=== PATIENT | male | born 1935 | race Caucasian/White ===

== ENCOUNTER 2017-07-13 11:31 | Emergency (ER) | payer OTHER ==
[2017-07-13 11:39] VITALS: RESP 16
--- NOTE | 2017-07-13 12:15 | EDPHY ---
H & P Stated Complaint: fever & cough from [facility] Time Seen by Provider: 07/13/17 12:14 HPI/ROS: CHIEF COMPLAINT: Fever, cough HISTORY OF PRESENT ILLNESS: The patient presents to the emergency department with a 3 day history of fever and cough. The patient's strep [place] from [facility]. The patient has no prior history of asthma, emphysema or cardiac disease. His is also sick with similar symptoms. The patient describes a moderate cough with mild dyspnea. The patient denies asymmetric calf pain or swelling. He denies abdominal pain, nausea, vomiting or diarrhea. REVIEW OF SYSTEMS: A comprehensive 10 point review of systems is otherwise negative aside from elements mentioned in the history of present illness. Source: Patient - Personal History Current Tetanus/Diphtheria Vaccine: Unsure Current Tetanus Diphtheria and Acellular Pertussis (TDAP): Unsure - Medical/Surgical History Hx Asthma: No Hx Chronic Respiratory Disease: No Hx Diabetes: No Hx Cardiac Disease: No Hx Renal Disease: No Hx Cirrhosis: No Hx Alcoholism: No Hx HIV/AIDS: No Hx Splenectomy or Spleen Trauma: No - Social History Smoking Status: Never smoked - Physical Exam Exam: General Appearance: Alert, no distress Eyes: Pupils equal and round no pallor or injection ENT, Mouth: Mucous membranes moist Respiratory: Rhonchorous breath sounds bilaterally Cardiovascular: Regular rate and rhythm Gastrointestinal: Abdomen is soft and nontender, no masses, bowel sounds normal Neurological: A&O, normal motor function, normal sensory exam, normal cranial nerves Skin: Warm and dry, no rashes Musculoskeletal: Neck is supple nontender Extremities: symmetrical, full range of motion Constitutional: Initial Vital Signs Temperature (C) 38.2 C 07/13/17 11:37 Heart Rate 107 H 07/13/17 11:37 Respiratory Rate 16 07/13/17 11:37 Blood Pressure 141/79 H 07/13/17 11:37 O2 Sat (%) 94 07/13/17 11:37 O2 Delivery Mode Room Air Allergies/Adverse Reactions: No Known Allergies Allergy (Unverified 07/13/17 11:39) Home Medications: Medication Instructions Recorded Albuterol [Ventolin Hfa Inhaler] 2 puffs IH QID PRN #1 mdi 07/13/17 Oseltamivir Phosphate [Tamiflu] 75 mg PO BID #10 cap 07/13/17 Medical Decision Making - Diagnostics Imaging Results: Imaging Impressions Chest X-Ray 07/13/17 12:15 Impression: No acute cardiopulmonary abnormality. Marked elevation/eventration right hemidiaphragm.. ED Course/Re-evaluation: The patient presents to the ED with symptoms consistent with acute bronchitis. The patient has fever, cough and mild dyspnea. The patient has no evidence of an obvious infiltrate noted on his chest x-ray. The patient did receive an albuterol nebulizer in the ED. The patient's influenza nasal swab is positive. The patient will be started on Tamiflu. The patient is otherwise well-appearing. He would like to be discharged home. He will be given albuterol MDI as well. The patient is advised to return to the ED for markedly worsening symptoms or other concerns. Differential Diagnosis: Differential diagnosis considered includes asthma, bronchitis, pneumonia - Data Points Microbiology Results: MICROBIOLOGY 07/13/17 12:48 Nasal, Sinus - Swab Respiratory Panel (PCR) - Final Influenza Virus Type A H3 Medications Given: Discontinued Medications Albuterol (Proventil Neb) 3 ml IH EDNOW ONE Stop: 07/13/17 13:02 Last Admin: 07/13/17 13:17 Dose: 3 ml Departure - Departure Disposition: Home, Routine, Self-Care Clinical Impression: Acute bronchitis, Influenza Condition: Good Instructions: Acute Bronchitis (ED) Additional Instructions: 1. Please use albuterol inhaler up to every 2 hours as needed for cough. 2. Tylenol and ibuprofen as needed for fever. 3. Please return to the ED for markedly worsening symptoms, difficulty breathing or other concerns. Prescriptions: Albuterol [Ventolin Hfa Inhaler] 2 puffs IH QID PRN #1 mdi PRN Reason: for shortness of breath Oseltamivir Phosphate [Tamiflu] 75 mg PO BID #10 cap
[2017-07-13] MEDS ORDERED: ALBUTEROL 3 ML DEYVIAL IH ONE (13:01)
[2017-07-13 15:13] VITALS: BP 128/72; PULSE 103; TEMP 98.1; O2SAT 91
== END 2017-07-13 15:11 | disposition home or self-care (01) ==
DX: J09.X2 Influenza due to identified novel influenza A virus with other respiratory manifestations (principal)

== ENCOUNTER 2017-07-16 08:46 | Emergency (ER) | payer OTHER ==
[2017-07-16 08:52] VITALS: TEMP 98.2; O2SAT 93
--- NOTE | 2017-07-16 09:05 | EDPHY ---
H & P Stated Complaint: seen saturday for resp illness/cough is worse Time Seen by Provider: 07/16/17 08:58 - Personal History Current Tetanus/Diphtheria Vaccine: Unsure - Medical/Surgical History Hx Asthma: No Hx Chronic Respiratory Disease: No Hx Diabetes: No Hx Cardiac Disease: No Hx Renal Disease: No Hx Cirrhosis: No Hx Alcoholism: No Hx HIV/AIDS: No Hx Splenectomy or Spleen Trauma: No Other PMH: denies - Social History Smoking Status: Never smoked Constitutional: Initial Vital Signs Temperature (C) 36.8 C 07/16/17 08:50 Heart Rate 93 07/16/17 08:50 Respiratory Rate 18 07/16/17 08:50 Blood Pressure 149/85 H 07/16/17 08:50 O2 Sat (%) 93 07/16/17 08:50 O2 Delivery Mode Nasal Cannula O2 (L/minute) 2 Allergies/Adverse Reactions: No Known Allergies Allergy (Verified 07/16/17 08:50) Home Medications: Medication Instructions Recorded Albuterol [Ventolin Hfa Inhaler] 2 puffs IH QID PRN #1 mdi 07/13/17 Oseltamivir Phosphate [Tamiflu] 75 mg PO BID #10 cap 07/13/17 HYDROcodone/HOMATROPINE HYCODA 1 tsp PO Q4-6PRN PRN #120 ml 07/16/17 [Hycodan Syrup (RX)] Medical Decision Making - Diagnostics Imaging Results: Imaging Impressions Chest X-Ray 07/16/17 09:17 Impression: 1. Persistent elevated right hemidiaphragm with right middle lobe atelectasis. 2. Bronchitis/airways disease. 2. No definite focal pneumonia. Imaging: I viewed and interpreted images myself ED Course/Re-evaluation: CHIEF COMPLAINT: Cough HISTORY OF PRESENT ILLNESS: This patient is a 81 year old male who is positive for flu arriving with his daughter complaining of worsening cough over the last four days. He is visiting and arrived recently from [place], and was positive for flu at a recent visit in this emergency department 07/13/17. He is currently being treated with Tamiflu. He is concerned regarding a worsening cough and potential for pneumonia. He denies fever, chills, vomiting, diarrhea, or other associated symptoms. REVIEW OF SYSTEMS: A 10 point review of systems was performed and is negative with the exception of the elements mentioned in the history of present illness. PHYSICAL EXAM: HR, BP, O2 Sat, RR. Temp noted General Appearance: Alert, well hydrated, appropriate, and non-toxic appearing. Head: Atraumatic without scalp tenderness or obvious injury Eyes: Pupils equal, round, reactive to light and accommodation, EOMI, no trauma , no injection. Nose: Atraumatic, no rhinorrhea, clear. Throat: There is no erythema or exudates, no lesions, normal tonsils, mucus membranes moist. Neck: Supple, nontender, no lymphadenopathy. Respiratory: Rhonchi in all mcneil. No retractions, no distress, and no accessory muscle use. Cardiovascular: Regular rate and rhythm, no murmurs, rubs, or gallops. Good capillary refill all extremities. Gastrointestinal: Abdomen is soft, nontender, non-distended, no masses, no rebound, no guarding, no peritoneal signs. Musculoskeletal: Normal active ROM of all extremities, atraumatic. Neurological: Alert, appropriate, and interactive. Nonfocal neuro exam. Skin: No rashes, good turgor, no nodules on palpation. Past medical history: Denies Past surgical history: Noncontributory Family history: Noncontributory Social history: Daughter at bedside. Visiting from [place]. DIFFERENTIAL DIAGNOSIS: The differential diagnosis for the patient's symptoms included but was not limited to influenza, pneumonia, viral syndrome, and sepsis. MEDICAL DECISION MAKING: This 81 year old male presents with four day history of worsening cough. He recently began treatment for influenza with Tamiflu. Physical exam reveals rhonchi in all mcneil. Low O2 saturation, 88%. Plan for DuoNeb, chest x-ray. Chest x-ray largely unchanged from 07/13/17. Discussed treatment options with the patient including admission for monitoring of oxygen saturation. He would like to be discharge home. Plan to discharge with prescription for Hycodan for cough suppression and home oxygen. Consulted with respiratory therapist, who will provide home oxygen to the patient. Follow up and return precautions discussed. The patient and his daughter are comfortable with this plan. I recommended flu prophylaxis for daughter and her family. - Data Points Medications Given: Discontinued Medications Albuterol/Ipratropium (Duoneb) 3 ml IH EDNOW ONE Stop: 07/16/17 09:17 Last Admin: 07/16/17 09:42 Dose: 3 ml Departure - Departure Disposition: Home, Routine, Self-Care Clinical Impression: Influenza Condition: Good Instructions: Influenza (ED) Additional Instructions: 1. Take your Hycodan cough syrup as prescribed as needed for cough suppression. 2. Use your home oxygen as directed. 3. Follow up with a primary care provider for continued symptoms. We have referred you to our local primary care physician contract officer. 4. Return to the Emergency Department for uncontrollable cough, severe fever, vomiting, chest pain, shortness of breath, or other worsening of condition. 5. We recommend flu prophylaxis for your daughter and her family as discussed. Referrals: NONE *PRIMARY CARE P,. [Primary Care Provider] - As per Instructions Raza Baldwin MD [[facility] Primary Care Provider] - As per Instructions Prescriptions: HYDROcodone/HOMATROPINE HYCODA [Hycodan Syrup (RX)] 1 tsp PO Q4-6PRN PRN #120 ml PRN Reason: Cough, Moderate Report Scribed for: Dilip Renee Report Scribed by: Reema Augustine Date of Report: 07/16/17 Time of Report: 10:07
[2017-07-16] MEDS ORDERED: IPRATROPIUM/ALBUTEROL 3 ML DEYVIAL IH ONE (09:16)
[2017-07-16 11:31] VITALS: RESP 16
[2017-07-16 11:44] VITALS: BP 122/85; PULSE 75
== END 2017-07-16 12:32 | disposition home or self-care (01) ==
DX: J11.1 Influenza due to unidentified influenza virus with other respiratory manifestations (principal)